=== PATIENT | female | born 1980 | race Caucasian/White ===

== ENCOUNTER 2024-12-02 08:38 | Outpatient (CLI) | payer BC, SELFPAY | END 2024-12-02 08:39 | disposition home or self-care (01) | LOC: NFLDREF 12-07 08:47 | PROVIDERS: PCP Emergency Medicine; Referring Provider Emergency Medicine; Visit Provider Emergency Medicine | DX: R63.5 Abnormal weight gain (principal); E66.9 Obesity, unspecified; Z13.1 Encounter for screening for diabetes mellitus; Z13.6 Encounter for screening for cardiovascular disorders | CPT/HCPCS: 80053; 80061; 84443 ==

== ENCOUNTER 2025-01-04 06:56 | Outpatient (CLI) | payer BC, SELFPAY ==
--- NOTE | 2025-01-04 07:15 | CRLHL7_ITS ---
For Patients: As a result of the Century Cures Act, medical imaging exams and procedure reports are released immediately into your electronic medical record. You may view this report before your referring provider. If you have questions, please contact your health care provider. INDICATION: Elevated liver transaminase levels TECHNIQUE: Ultrasound abdomen limited. Sonographic images of the right upper quadrant were obtained using smith-scale and color Doppler images. COMPARISON: None FINDINGS: Liver: Diffusely increased in echogenicity. No masses. No intrahepatic biliary dilatation. Portal vein patent and hepatopetal. Gallbladder: No stones or sludge. Normal wall thickness. No pericholecystic fluid. Common bile duct: 2 mm. Pancreas: Partially obscured by bowel gas without discrete lesion. Right kidney: Normal in size. Normal echotexture and cortex. No masses, stones, or hydronephrosis. Vasculature: Proximal abdominal aorta and IVC are normal. IMPRESSION: Moderate to severe hepatic steatosis. Dictated by Alejandro Richter MD @ 01/04/2025 7:51:42 AM (Electronically Signed)
== END 2025-01-04 06:57 | disposition home or self-care (01) ==
LOC: US 06:57
PROVIDERS: PCP Emergency Medicine; Visit Provider Emergency Medicine
DX: R74.01 Elevation of levels of liver transaminase levels (principal); K76.0 Fatty (change of) liver, not elsewhere classified; R73.03 Prediabetes
CPT/HCPCS: 76705

== ENCOUNTER 2025-01-06 08:30 | Outpatient (CLI) | payer BC, SELFPAY | END 2025-01-06 08:31 | disposition home or self-care (01) | PROVIDERS: PCP Emergency Medicine; Visit Provider Emergency Medicine | DX: I10 Essential (primary) hypertension (principal) | CPT/HCPCS: 80048 ==

== ENCOUNTER 2025-01-27 15:04 | Outpatient (CLI) | payer BC, SELFPAY ==
--- NOTE | 2025-01-27 15:20 | CRLHL7_ITS ---
For Patients: As a result of the Century Cures Act, medical imaging exams and procedure reports are released immediately into your electronic medical record. You may view this report before your referring provider. If you have questions, please contact your health care provider. INDICATION: BILATERAL SCREENING MAMMOGRAM, ASYMPTOMATIC 44 Y/O FEMALE COMPARISON: NONE, BASELINE EXAM TECHNIQUE: CC and MLO views were obtained. These mammographic images have been obtained using full-field digital technique. These mammographic images were interpreted with the benefit of computer aided detection and tomosynthesis. BREAST COMPOSITION: There are scattered areas of fibroglandular density. FINDINGS: No suspicious findings. ASSESSMENT: BI-RADS 1 Negative RECOMMENDATION: Annual screening mammogram. A lay language report of this examination will be provided to the patient. Dictated by: Rufus Guevara MD @ 02/05/2025 12:52:30 (Electronically Signed)
== END 2025-01-27 15:05 | disposition home or self-care (01) ==
LOC: MAMMO 15:05
PROVIDERS: PCP Emergency Medicine; Visit Provider Emergency Medicine
DX: Z12.31 Encounter for screening mammogram for malignant neoplasm of breast (principal)
CPT/HCPCS: 77063; 77067